=== PATIENT | male | born 2000 | race Two or more races ===

== ENCOUNTER 2024-06-17 13:48 | Emergency (ER) | payer MEDICAID, OTHER ==
[~2024-06-17] VITALS: Ht 177.8 cm; Wt 190.3 kg
--- NOTE | 2024-06-17 15:33 | ED.PDOC ---
History of Present Illness HPI Comments 23 year old male presents for URI symptoms. Symptoms started 4 days ago C/o cough w/ green phlegm, wheezing Taking OTC cough med with some improvement No medication Denies fevers chills night sweats unintentional weight loss Denies persistent chest pain, shortness of breath, leg swelling Denies history of asthma nor any breathing conditions Denies history of pneumonia Denies recent international travel Chief Complaint: Flu like Time Seen by MD: 14:00 Reviewed Notes: Nurses Notes, Medications, Allergies Information Source: Patient All Other Systems: Reviewed and Negative (Per HPI) Physical Exam General Appearance: No Apparent Distress, Normal HEENT: Normal ENT Inspection, Pharynx Normal, TMs Normal Neck: Full Range of Motion, Non-Tender, Normal, Normal Inspection Respiratory: Chest Non-Tender, Lungs Clear, No Accessory Muscle Use, No Respiratory Distress, Normal Breath Sounds Cardiovascular: No Edema, No JVD, No Murmur, No Gallop, Normal Peripheral Pulses, Regular Rate/Rhythm Breast Exam: Deferred Gastrointestinal: No Organomegaly, Non Tender, No Pulsatile Mass, Normal Bowel Sounds, Soft Genitalia: Deferred Pelvic: Deferred Rectal: Deferred Extremities: No calf tenderness, Normal capillary refill, Normal inspection, Normal range of motion, Non-tender, No pedal edema Musculoskeletal : Apperance: Normal Neurologic: Alert, utilization manager II-XII nml as Tested, No Motor Deficits, Normal Affect, Normal Mood, No Sensory Deficits Cerebellar Function: Normal Reflexes: Normal Skin: Dry, Normal Color, Warm Lymphatic: No Adenopathy Was a procedure done? Was a procedure done?: No Fever Differential Dx Differential Diagnosis: Viral Syndrome X-Ray, Labs, Meds, VS Vital Signs Date Time Temp Pulse Resp B/P (MAP) Pulse Ox O2 Delivery O2 Flow Rate FiO2 06/17/24 15:46 98.1 83 20 143/88 (106) 98 98.1 06/17/24 15:46 83 20 98 Room Air 06/17/24 14:02 98.1 83 20 143/88 (106) 98 X-Ray, Labs, Meds, VS Comment History and physical consistent of URI Take medication as prescribed No concerns for pneumonia at this time. No risk factors. No indication for antibiotics Discussed that cough can linger up to 6 weeks after viral URI ED precautions if cough does not alleviate or if cough worsens Supportive care and return precautions discussed Counseled viral infection and explained that antibiotics would not be helpful in resolving the illness sooner. Recommended vitamin C, rest, handwashing, and symptomatic care. Expect 2-week course with possibly of cough lingering up to 6 weeks. Nonpharmacological remedies for fluids has been recommended as well The patient is overall well-appearing nontoxic on exam. On physical exam, respirations even and unlabored, clear to auscultation bilaterally. Oxygen stable on room air. Did not have any focal lung findings and therefore chest x-ray was not indicated during this exam Low suspicion of strep pharyngitis given physical exam findings and patient's presenting symptoms No signs of meningismus on exam Overall, the patient is well hydrated and nontoxic. Plan for symptomatic control for fever and pain as needed. The patient was able to tolerate p.o. intake in the ED. at this time, patient is safe for discharge home. The exam findings and plan discussed. We will discharge home with PCP follow up and strict return precautions. Patient is aware that the purpose of this visit was for an acute medical emergency requiring emergent stabilization. Chronic conditions, including malignancies have not been ruled out. Patient is instructed to follow up with PCP as directed and discharge instructions for continued care and workup. If unable to arrange follow-up, patient is to return to the emergency department for reassessment. Patient (parent or legal guardian if applicable) was given verbal and written discharge instructions and acknowledges understanding. Time of 1ST Reevaluation: 15:00 Reevaluation 1ST: Improved Patient Education/Counseling: Diagnosis, Treatment Family Education/Counseling: Diagnosis, Treatment Departure 1 Departure Time of Disposition: 15:56 Impression: Primary Impression: Bronchitis Disposition: 01 HOME / SELF CARE / HOMELESS Condition: Stable e-Prescriptions Pseudoephedrine-Guaifenesin (Mucinex D) 1 Tab Tab 1 TAB PO BID for 10 Days, #20 TAB 0 Refills Prov: MINA NIX [employer] 06/17/24 Benzonatate (Benzonatate) 100 Mg Cap 1 CAP PO TID for 10 Days, #30 CAP 0 Refills Prov: MINA NIX [employer] 06/17/24 Promethazine-Dm (Promethazine Dm 6.25-15 mg/5Ml) 1 Coty Coty 5 ML PO TID for 10 Days, #150 ML 0 Refills Prov: MINA NIX NP 06/17/24 Critical Care Note Critical Care Time?: No Stability Stability form required: No Heart Score Heart Score: Heart Score Response (Comments) Value History N/A 0 EKG N/A 0 Age N/A 0 Risk Factors N/A 0 Troponin N/A 0 Total 0 MINA NIX NP Jun 17, 2024 15:33
[2024-06-17 15:46] VITALS: BP 143/88; PULSE 83; RESP 20; TEMP 98.1; O2SAT 98
--- NOTE | 2024-06-17 15:48 | DVH ---
CHEST RADIOGRAPH Indication: cough Technique: Single frontal view of the chest was obtained Comparison: None FINDINGS: Lines and Tubes: None Lungs: No focal consolidation. Pleura: No effusion. No pneumothorax. Cardiomediastinal contours: Unremarkable Bones: No acute osseous abnormality. IMPRESSION: No acute cardiopulmonary disease.
[2024-06-17] MEDS ORDERED: PROM1SOL4 PO (15:57)
[2024-06-17] MEDS ORDERED: PSEU120T18 PO (15:57)
[2024-06-17] MEDS ORDERED: BENZ100C97 PO (15:57)
== END 2024-06-17 16:03 | disposition home or self-care (01) ==
LOC: ER 13:52
DX: J40 Bronchitis, not specified as acute or chronic (principal)
CPT/HCPCS: 71045

== ENCOUNTER 2024-06-29 02:36 | Emergency (ER) | payer MEDICAID ==
[~2024-06-29] VITALS: Ht 180.3 cm; Wt 181.8 kg
[~2024-06-29 02:36] MED LIST: BENZ100C97 PO; PROM1SOL4 PO; PSEU120T18 PO
[2024-06-29 03:17] VITALS: BP 146/81; PULSE 92; RESP 18; TEMP 98.1; O2SAT 97
[2024-06-29] MEDS ORDERED: MOXI0.5S3 OP (03:18)
--- NOTE | 2024-06-29 03:18 | ED.PDOC ---
Eye-HPI HPI Comments This is a 24-year-old male presents to the ED chief complaint bilateral eye irritation and redness. States history of conjunctivitis. Notes around 2 days ago redness and itchiness started in his left eye in his now progress to his right. He notes has been using a old prescription of antibiotic drops over the past 2 days which has been helping however he states has ran out in his requesting a refill at this time. Denies light sensitivity vision changes eye pain, injury fever or chills. Chief Complaint: Eye Problem Time Seen by MD: 02:52 Primary Care Provider: Gopal Vargas Reviewed Notes: Nurses Notes, Medications, Allergies Allergies: Coded Allergies: NO KNOWN ALLERGIES (Unverified , 06/29/24) Home Meds Active Scripts Moxifloxacin Hydrochloride (Moxifloxacin HCl) 0.5 % Coty, 1 DROP OP TID for 7 Days, #3 ML Instill 1 drop in both eyes 3 times a day x7 days Prov:SHERMAN HUBBARD [employer] 06/29/24 Pseudoephedrine-Guaifenesin (Mucinex D) 1 Tab Tab, 1 TAB PO BID for 10 Days, #20 TAB 0 Refills Prov:MINA NIX NP 06/17/24 Benzonatate (Benzonatate) 100 Mg Cap, 1 CAP PO TID for 10 Days, #30 CAP 0 Refills Prov:MINA NIX NP 06/17/24 Promethazine-Dm (Promethazine Dm 6.25-15 mg/5Ml) 1 Coty Coty, 5 ML PO TID for 10 Days, #150 ML 0 Refills Prov:MINA NIX NP 06/17/24 Mode of Arrival: Ambulatory Past Medical History PAST MEDICAL HISTORY: Denies Surgical History: Denies all surgeries Family History Family History: Reviewed,noncontributory to illness Social History Smoker: Non-Smoker Alcohol: Denies ETOH Use Drugs: Denies Drug Use Constitutional: denies: chills, diaphoresis, fatigue, fever, malaise, sweats, weakness, others EENTM: reports: eye redness; denies: blurred vision, double vision, ear bleeding, ear discharge, ear drainage, ear pain, ear ringing, eye pain, hearing loss, mouth pain, mouth swelling, nasal discharge, nose bleeding, nose congestion, nose pain, photophobia, tearing, throat pain, throat swelling, voice changes, others Respiratory: denies: cough, hemoptysis, orthopnea, SOB at rest, shortness of breath, SOB with excertion, stridor, wheezing, others Cardiovascular: denies: chest pain, dizzy spells, diaphoresis, Dyspnea on exertion, edema, irregular heart beat, left arm pain, lightheadedness, palpitations, PND, syncope, others Gastrointestinal: denies: abdomen distended, abdominal pain, blood streaked bowels, constipated, diarrhea, dysphagia, difficulty swallowing, hematemesis, melena, nausea, poor appetite, poor fluid intake, rectal bleeding, rectal pain, vomiting, others Genitourinary: denies: burning, dysuria, flank pain, frequency, hematuria, incontinence, penile discharge, penile sore, pain, testicle pain, testicle swelling, urgency, others Neurological: denies: dizziness, fainting, headache, left sided numbness, left sided weakness, numbness, paresthesia, pre-existing deficit, right sided numbness, right sided weakness, seizure, speech problems, tingling, tremors, weakness, others Musculoskeletal: denies: back pain, gout, joint pain, joint swelling, muscle pain, muscle stiffness, neck pain, others Integumetry: denies: bruises, change in color, change in hair/nails, dryness, laceration, lesions, lumps, rash, wounds, others Allergic/Immunocompromised: denies: Difficulty Healing, Frequent Infections, Hives, Itching, others Hematologic/Lymphatic: denies: anemia, blood clots, easy bleeding, easy bruising, swollen glands, others Endocrine: denies: excessive hunger, excessive sweating, excessive thirst, excessive urination, flushing, intolerance to cold, intolerance to heat, unexplained weight gain, unexplained weight loss, others Psychiatric: denies: anxiety, bipolar disorder, depression, hopeless, panic disorder, schizophrenia, sleepless, suicidal, others Physical Exam General Appearance: No Apparent Distress, Normal HEENT: Pharynx Normal, TMs Normal, Other (Lateral conjunctiva hyperemia with noted yellow drainage.) Neck: Full Range of Motion, Non-Tender Respiratory: Lungs Clear, No Respiratory Distress, Normal Breath Sounds Cardiovascular: No Murmur, Normal Peripheral Pulses, Regular Rate/Rhythm Breast Exam: Deferred Gastrointestinal: Non Tender, Soft Genitalia: Deferred Pelvic: Deferred Rectal: Deferred Extremities: Normal range of motion Musculoskeletal : Apperance: Normal Neurologic: Alert, communications department head II-XII nml as Tested, No Motor Deficits, Normal Affect, Normal Mood, No Sensory Deficits Cerebellar Function: Normal Reflexes: Normal Skin: Dry, Normal Color, Warm Lymphatic: No Adenopathy Was a procedure done? Was a procedure done?: No EENT DIFF Eye: Conjunctivitis, Foreign Body-Conjunctiva, Foreign Body-Corneal, Orbital Cellulits, Periorbital Cellulits X-Ray, Labs, Meds, VS Vital Signs Date Time Temp Pulse Resp B/P (MAP) Pulse Ox O2 Delivery O2 Flow Rate FiO2 06/29/24 03:17 98.1 92 18 146/81 (102) 97 98.1 06/29/24 03:17 92 18 97 Room Air 06/29/24 02:45 98.1 92 18 146/81 (102) 97 X-Ray, Labs, Meds, VS Comment Bacterial we will script moxifloxacin advised to stop his old antibiotic drops. Advised to avoid scratching, wash pillowcase after treatment. Follow up with his PCP within 2-3 days if no improvement ER return precautions given patient indicated understanding agrees with discharge plan of care. Time of 1ST Reevaluation: 03:15 Reevaluation 1ST: Improved Patient Education/Counseling: Diagnosis, Treatment, Prognosis, Need For Follow Up Family Education/Counseling: No Family Present Departure 1 Departure Time of Disposition: 03:15 Impression: Primary Impression: Conjunctivitis Qualified Codes: H10.33 - Unspecified acute conjunctivitis, bilateral Disposition: HOME / SELF CARE / HOMELESS Condition: Stable e-Prescriptions Moxifloxacin Hydrochloride (Moxifloxacin HCl) 0.5 % Coty 1 DROP OP TID for 7 Days, #3 ML Instill 1 drop in both eyes 3 times a day x7 days Prov: SHERMAN HUBBARD 06/29/24 Discharged With: Self Critical Care Note Critical Care Time?: No Stability Stability form required: SHERMAN Powell Jun 29, 2024 03:18
== END 2024-06-29 03:24 | disposition home or self-care (01) ==
LOC: ER 02:36
DX: H10.9 Unspecified conjunctivitis (principal); Z79.899 Other long term (current) drug therapy